=== PATIENT | male | born 1955 | race Hispanic/Latino ===

== ENCOUNTER 2018-09-08 07:51 | Day surgery (SDC) | payer OTHER ==
[~2018-09-08 07:51] MED LIST: AMOXICILLIN500 MG PO; GABAPENTIN300 M2 PO; JARDIANCE25 MG PO; LEVO-T112 MCG PO; LISINOP/HCTZ1 TA1 PO; PRAVASTATIN10 MG PO
[2018-09-08 09:15] VITALS: BP 116/65
== END 2018-09-08 09:35 | disposition home or self-care (01) | DRG 951 ==
LOC: ENDO 07:51
PROVIDERS: ATTEND Surgery
PROC: 0DBP8ZX Excision of Rectum, Via Natural or Artificial Opening Endoscopic, Diagnostic (ICD-10-PCS; principal; 2018-09-08)
DX: Z12.11 Encounter for screening for malignant neoplasm of colon (principal); K62.1 Rectal polyp; K57.30 Diverticulosis of large intestine without perforation or abscess without bleeding; I10 Essential (primary) hypertension; E11.9 Type 2 diabetes mellitus without complications; E03.9 Hypothyroidism, unspecified

== ENCOUNTER 2024-04-28 07:08 | Day surgery (SDC) | payer MEDICARE, BC ==
[~2024-04-28] VITALS: Ht 172.7 cm; Wt 81.6 kg
[~2024-04-28 07:08] MED LIST changes: +GABAPENTIN PO; +GLIPIZIDE ER5 MG PO; +LEVOTHYROXIN125 MCG PO; +PRAVASTATIN PO
[2024-04-28] MEDS ORDERED: SODIUM CHLORIDE 0.9% 1,000 ML IV ONE (07:14)
[2024-04-28] MEDS ORDERED: FAMOTIDINE 10MG/ML 2ML SDV IV ONE (07:14)
[2024-04-28] MEDS ORDERED: GLYCOPYRROLATE 0.2 MG/ML IV ONE (08:49)
[2024-04-28] MEDS ORDERED: LIDOCAINE HCL 2% 2ML SDV IV ONE (08:49)
[2024-04-28] MEDS ORDERED: PROPOFOL 200 MG/20 ML VIAL IV ONE (08:49)
[2024-04-28 09:25] VITALS: BP 118/80
== END 2024-04-28 09:22 | disposition home or self-care (01) ==
LOC: ENDO 07:08 → ORM 10:15
PROVIDERS: ATTEND Surgery
PROC: 0DJD8ZZ Inspection of Lower Intestinal Tract, Via Natural or Artificial Opening Endoscopic (ICD-10-PCS; principal; 2024-04-28)
DX: Z12.11 Encounter for screening for malignant neoplasm of colon (principal); K64.8 Other hemorrhoids; K57.30 Diverticulosis of large intestine without perforation or abscess without bleeding; I10 Essential (primary) hypertension; E11.9 Type 2 diabetes mellitus without complications; E78.5 Hyperlipidemia, unspecified; E03.9 Hypothyroidism, unspecified; Z79.84 Long term (current) use of oral hypoglycemic drugs; Z86.0100 Personal history of colon polyps, unspecified
CPT/HCPCS: J1596